=== PATIENT | male | born 1980 | race American Indian/Alaskan Native ===

== ENCOUNTER 2020-09-09 08:34 | Emergency (ER) | payer OTHER ==
--- NOTE | 2020-09-09 08:57 | EDM.PDOC ---
ED HPI GENERAL MEDICAL PROBLEM - General Chief Complaint: Abdominal Pain Stated Complaint: AMBULANCE Time Seen by Provider: 09/09/20 08:45 Source of Information: Reports: Patient History Limitations: Reports: No Limitations - History of Present Illness INITIAL COMMENTS - FREE TEXT/NARRATIVE: This 40 yo male patient was brought to the ED by [facility] due to upper abdominal pain. The patient reports his abdominal pain started at about 0200 in the morning. The patient reports he took Tylenol with no symptom relief. The patient reports he had chicken fried rice last night and a couple of chocolates before his symptoms started. The patient reports no past history of abdominal pain or abdominal surgeries. The patient denied any recent alcohol or drug use. Onset: Today Onset Date: 09/09/20 Onset Time: 02:00 Duration: Constant Location: Reports: Abdomen (Upper abdomen) Quality: Reports: Ache, Sharp, Stabbing Severity: Moderate Improves with: Reports: None Worsens with: Reports: None Context: Reports: Other Associated Symptoms: Reports: No Other Symptoms Treatments FAMILY SERVICES ASSISTANT: Reports: Acetaminophen Epigastric Pain Score (Numeric/FACES): 10 - Related Data Allergies Allergy/AdvReac Type Severity Reaction Status Date / Time penicillin Allergy Difficulty Verified 09/09/20 08:44 Breathing Home Meds: Home Meds . [No Known Home Meds] 01/27/15 [History] Past Medical History - Past Health History Medical/Surgical History: Denies Medical/Surgical History Other Musculoskeletal History: Hasd Marsa to left arm in past. Other Dermatologic History: MARSA to left arm. Social & Family History - Tobacco Use Tobacco Use Status *Q: Current Every Day Tobacco User Years of Tobacco use: 10 Packs/Tins Daily: 0.5 - Recreational Drug Use Recreational Drug Use: No ED ROS GENERAL - Review of Systems Review Of Systems: Comprehensive ROS is negative, except as noted in HPI. ED EXAM, GI/ABD - Physical Exam Exam: See Below Exam Limited By: No Limitations General Appearance: Alert, WD/WN, Moderate Distress Eyes: Bilateral: Normal Appearance, EOMI Ears: Normal External Exam, Normal Canal, Hearing Grossly Normal, Normal TMs Nose: Normal Inspection, Normal Mucosa, No Blood Throat/Mouth: Normal Inspection, Normal Lips, Normal Teeth, Normal Gums, Normal Oropharynx, Normal Voice, No Airway Compromise Head: Atraumatic, Normocephalic Neck: Normal Inspection, Supple, Non-Tender, Full Range of Motion Respiratory/Chest: No Respiratory Distress, Lungs Clear, Normal Breath Sounds, No Accessory Muscle Use, Chest Non-Tender Cardiovascular: Normal Peripheral Pulses, Regular Rate, Rhythm, No Edema, No Gallop, No JVD, No Murmur, No Rub GI/Abdominal Exam: Normal Bowel Sounds, Soft, No Organomegaly, No Distention, No Abnormal Bruit, No Mass, Pelvis Stable, Tender (epigastric region) (Male) Exam: Deferred Rectal (Males) Exam: Deferred Back Exam: Normal Inspection, Full Range of Motion, NT Extremities: Normal Inspection, Normal Range of Motion, Non-Tender, Normal Capillary Refill, No Pedal Edema Neurological: Alert, Oriented, CN II-XII Intact, Normal Cognition, Normal Gait, Normal Reflexes, No Motor/Sensory Deficits Psychiatric: Normal Affect, Normal Mood Skin Exam: Warm, Dry, Intact, Normal Color, No Rash Lymphatic: No Adenopathy Course - Vital Signs Last Recorded V/S: Last Vital Signs Temp 36.6 C 09/09/20 08:58 Pulse 78 09/09/20 08:58 Resp 18 09/09/20 08:58 BP 145/81 H 09/09/20 08:58 Pulse Ox 100 09/09/20 08:58 - Orders/Labs/Meds Orders: Active Orders 24 hr Category Date Time Status EKG Documentation Completion [RC] STAT Care 09/09/20 08:46 Ordered COVID-19/FLU A+B [MOLEC] Urgent Lab 09/09/20 10:43 Ordered CULTURE BLOOD [BC] Stat Lab 09/09/20 08:46 Ordered HYDROmorphone [Dilaudid] Med 09/09/20 10:55 Once 1 mg IVPUSH ONETIME ONE Sodium Chloride 0.9% [Normal Saline] 1,000 ml Med 09/09/20 09:31 Ordered IV .BOLUS Medication Orders Sodium Chloride (Normal Saline) 1,000 mls @ 500 mls/hr IV .BOLUS ONE Stop: 09/09/20 11:30 Last Admin: 09/09/20 09:39 Dose: 500 mls/hr Documented by: SARAH Labs: Laboratory Tests 09/09/20 09/09/20 09/09/20 Range/Units 09:00 09:00 10:38 WBC 11.7 H (5.0-10.0) 10^3/uL RBC 4.44 L (4.6-6.2) 10^6/uL Hgb 13.6 L (14.0-18.0) g/dL Hct 40.0 (40.0-54.0) % MCV 90.1 (80-100) fL MCH 30.6 (27.0-34.0) pg MCHC 34.0 (33.0-35.0) g/dL Plt Count 306 (150-450) 10^3/uL Neut % (Auto) 87.1 H (42.2-75.2) % Lymph % (Auto) 7.0 L (20.5-50.1) % Coffee % (Auto) 4.8 (2-8) % Eos % (Auto) 1.0 (1.0-3.0) % Baso % (Auto) 0.1 (0.0-1.0) % Sodium 136 (136-145) mmol/L Potassium 3.6 (3.5-5.1) mmol/L Chloride 100 (98-107) mmol/L Carbon Dioxide 28 (21-32) mmol/L Anion Gap 11.6 (7-13) mEq/L BUN 14 (7-18) mg/dL Creatinine 0.82 (0.70-1.30) mg/dL Est Cr Clr Drug Dosing 118.17 mL/min Estimated GFR (MDRD) > 60 BUN/Creatinine Ratio 17.1 (No establ ref range) Glucose 111 H (74-99) mg/dL Calcium 8.1 L (8.5-10.1) mg/dL Total Bilirubin 0.5 (0.2-1.0) mg/dL AST 27 (15-37) U/L ALT 45 (16-63) U/L Alkaline Phosphatase 93 (46-116) U/L Troponin I < 0.017 (0.000-0.056) ng/mL Total Protein 6.7 (6.4-8.2) g/dL Albumin 3.6 (3.4-5.0) g/dL Globulin 3.1 Albumin/Globulin Ratio 1.2 Amylase 22 L (25-115) U/L Lipase 42 L (73-393) U/L Urine Color Yellow (YELLOW) Urine Appearance Slightly cloudy (CLEAR) Urine pH 7.5 (5.0-9.0) Ur Specific [place] 1.025 (1.005-1.030) Urine Protein Negative (NEGATIVE) Urine Glucose (UA) Negative (NEGATIVE) Urine Ketones Trace H (NEGATIVE) Urine Occult Blood Negative (NEGATIVE) Urine Nitrite Negative (NEGATIVE) Urine Bilirubin Negative (NEGATIVE) Urine Urobilinogen 1.0 (0.2-1.0) mg/dL Ur Leukocyte Esterase Negative (NEGATIVE) Urine Opiates Screen (NEGATIVE) Ur Oxycodone Screen (NEGATIVE) Urine Methadone Screen (NEGATIVE) Acetaminophen 14 (10-30 (Therapeutic)) ug/mL Ur Barbiturates Screen (NEGATIVE) U Tricyclic Antidepress (NEGATIVE) Ur Phencyclidine Scrn (NEGATIVE) Ur Amphetamine Screen (NEGATIVE) U Methamphetamines Scrn (NEGATIVE) Urine MDMA Screen (NEGATIVE) U Benzodiazepines Scrn (NEGATIVE) Urine Cocaine Screen (NEGATIVE) U Marijuana (THC) Screen (NEGATIVE) Ethyl Alcohol < 3 (0) mg/dL 09/09/20 Range/Units 10:38 WBC (5.0-10.0) 10^3/uL RBC (4.6-6.2) 10^6/uL Hgb (14.0-18.0) g/dL Hct (40.0-54.0) % MCV (80-100) fL MCH (27.0-34.0) pg MCHC (33.0-35.0) g/dL Plt Count (150-450) 10^3/uL Neut % (Auto) (42.2-75.2) % Lymph % (Auto) (20.5-50.1) % Coffee % (Auto) (2-8) % Eos % (Auto) (1.0-3.0) % Baso % (Auto) (0.0-1.0) % Sodium (136-145) mmol/L Potassium (3.5-5.1) mmol/L Chloride (98-107) mmol/L Carbon Dioxide (21-32) mmol/L Anion Gap (7-13) mEq/L BUN (7-18) mg/dL Creatinine (0.70-1.30) mg/dL Est Cr Clr Drug Dosing mL/min Estimated GFR (MDRD) BUN/Creatinine Ratio (No establ ref range) Glucose (74-99) mg/dL Calcium (8.5-10.1) mg/dL Total Bilirubin (0.2-1.0) mg/dL AST (15-37) U/L ALT (16-63) U/L Alkaline Phosphatase (46-116) U/L Troponin I (0.000-0.056) ng/mL Total Protein (6.4-8.2) g/dL Albumin (3.4-5.0) g/dL Globulin Albumin/Globulin Ratio Amylase (25-115) U/L Lipase (73-393) U/L Urine Color (YELLOW) Urine Appearance (CLEAR) Urine pH (5.0-9.0) Ur Specific [place] (1.005-1.030) Urine Protein (NEGATIVE) Urine Glucose (UA) (NEGATIVE) Urine Ketones (NEGATIVE) Urine Occult Blood (NEGATIVE) Urine Nitrite (NEGATIVE) Urine Bilirubin (NEGATIVE) Urine Urobilinogen (0.2-1.0) mg/dL Ur Leukocyte Esterase (NEGATIVE) Urine Opiates Screen Negative (NEGATIVE) Ur Oxycodone Screen Negative (NEGATIVE) Urine Methadone Screen Negative (NEGATIVE) Acetaminophen (10-30 (Therapeutic)) ug/mL Ur Barbiturates Screen Negative (NEGATIVE) U Tricyclic Antidepress Negative (NEGATIVE) Ur Phencyclidine Scrn Negative (NEGATIVE) Ur Amphetamine Screen Negative (NEGATIVE) U Methamphetamines Scrn Positive H (NEGATIVE) Urine MDMA Screen Negative (NEGATIVE) U Benzodiazepines Scrn Negative (NEGATIVE) Urine Cocaine Screen Negative (NEGATIVE) U Marijuana (THC) Screen Negative (NEGATIVE) Ethyl Alcohol (0) mg/dL Meds: Medications Generic Name Dose Route Start Last Admin Trade Name Freq PRN Reason Stop Dose Admin Sodium Chloride 1,000 mls @ 500 mls/hr 09/09/20 09:31 09/09/20 09:39 Normal Saline IV 09/09/20 11:30 500 mls/hr .BOLUS ONE Administration Discontinued Medications Generic Name Dose Route Start Last Admin Trade Name Freq PRN Reason Stop Dose Admin Hydromorphone HCl 0.5 mg 09/09/20 09:32 09/09/20 09:39 Dilaudid IVPUSH 09/09/20 09:33 0.5 mg ONETIME ONE Administration Iopamidol 100 ml 09/09/20 09:30 09/09/20 10:13 Isovue-300 (61%) IVPUSH 09/09/20 09:31 75 ml ONETIME ONE Administration Departure - Departure Time of Disposition: 10:55 Disposition: DC/Tfer to Acute Hospital 02 Condition: Poor Clinical Impression: Acute cholecystitis - Discharge Information *PRESCRIPTION DRUG MONITORING PROGRAM REVIEWED*: Not Applicable *COPY OF PRESCRIPTION DRUG MONITORING REPORT IN PATIENT MONO: Not Applicable Forms: Interfacility Transfer EMTALA Care Plan Goals: Discussed the patient's examination, lab, EKG and CT results with Dr. Guzman (Hospitalist with [facility] in [place]). Dr. Guzman accepted the patient for continued evaluation and further management. The patient will be transported by [facility]. Sepsis Event Note (ED) - Focused Exam Vital Signs: Vital Signs Temp Pulse Resp BP Pulse Ox 09/09/20 08:58 36.6 C 78 18 145/81 H 100 - My Orders Last 24 Hours: My Active Orders 09/09/20 08:46 EKG Documentation Completion [RC] STAT CULTURE BLOOD [BC] Stat 09/09/20 09:31 Sodium Chloride 0.9% [Normal Saline] 1,000 ml IV .BOLUS 09/09/20 10:43 COVID-19/FLU A+B [MOLEC] Urgent 09/09/20 10:55 HYDROmorphone [Dilaudid] 1 mg IVPUSH ONETIME ONE - Assessment/Plan Last 24 Hours: My Active Orders 09/09/20 08:46 EKG Documentation Completion [RC] STAT CULTURE BLOOD [BC] Stat 09/09/20 09:31 Sodium Chloride 0.9% [Normal Saline] 1,000 ml IV .BOLUS 09/09/20 10:43 COVID-19/FLU A+B [MOLEC] Urgent 09/09/20 10:55 HYDROmorphone [Dilaudid] 1 mg IVPUSH ONETIME ONE
[2020-09-09 08:59] VITALS: BP 145/81; PULSE 78
[2020-09-09 09:28] LABS: ACETAMINOPHEN 14 ug/mL (10-30 (Therapeutic)); ANION GAP 11.6 mEq/L (7-13); CHLORIDE,CL 100 mmol/L (98-107); SODIUM,NA 136 mmol/L (136-145)
[2020-09-09] MEDS ORDERED: Iopamidol 612 MG/ML 100 ML Bottle IVPUSH ONE (09:30)
[2020-09-09] MEDS ORDERED: Sodium Chloride 0.9% 1,000 ML IV ONE (09:31)
[2020-09-09] MEDS ORDERED: HYDROmorphone 0.5 MG/0.5 ML Syringe IVPUSH ONE (09:32)
--- NOTE | 2020-09-09 10:33 | CT ---
PROCEDURE INFORMATION: Exam: CT Abdomen And Pelvis With Contrast Exam date and time: 09/09/2020 10:00 AM Age: 40 years old Clinical indication: Abdominal pain; Additional info: Upper abdominal pain (wbc - 11.7) TECHNIQUE: Imaging protocol: Computed tomography of the abdomen and pelvis with contrast. Radiation optimization: All CT scans at this facility use at least one of these dose optimization techniques: automated exposure control; mA and/or kV adjustment per patient size (includes targeted exams where dose is matched to clinical indication); or iterative reconstruction. Contrast material: ISOVUE 300; Contrast volume: 75 ml; Contrast route: INTRAVENOUS (IV); COMPARISON: No relevant prior studies available. FINDINGS: Liver: Normal. No mass. Gallbladder and bile ducts: Markedly dilated gallbladder diffuse pericholecystic edema. Findings are highly suspicious for acute cholecystitis. No bile duct dilatation is identified. Pancreas: Normal. No ductal dilation. Spleen: Normal. No splenomegaly. Adrenal glands: Normal. No mass. Kidneys and ureters: Normal. No hydronephrosis. Stomach and bowel: Unremarkable. No obstruction. No mucosal thickening. Appendix: No evidence of appendicitis. Intraperitoneal space: Small amount of free fluid in the pelvis. Vasculature: Unremarkable. No abdominal aortic aneurysm. Lymph nodes: Unremarkable. No enlarged lymph nodes. Urinary bladder: Unremarkable as visualized. Reproductive: Unremarkable as visualized. Bones/joints: Unremarkable. No acute fracture. Soft tissues: Unremarkable. IMPRESSION: 1. Findings consistent with acute cholecystitis. No bile duct dilatation identified. Consider ultrasound to evaluate
[2020-09-09 10:52] LABS: AMPHETAMINES,URINE NEGATIVE (NEGATIVE); BARBITURATES,URINE NEGATIVE (NEGATIVE); BENZODIAZEPINE,URINE NEGATIVE (NEGATIVE); MDMA (ECSTASY), URINE NEGATIVE (NEGATIVE); METHADONE,URINE NEGATIVE (NEGATIVE); METHAMPHETAMINES,URINE POSITIVE (NEGATIVE); OPIATES,URINE NEGATIVE (NEGATIVE); OXYCODONE,URINE NEGATIVE (NEGATIVE); PHENCYCLIDINE,URINE NEGATIVE (NEGATIVE); TCA,URINE NEGATIVE (NEGATIVE)
[2020-09-09] MEDS ORDERED: HYDROmorphone 1 MG/ML Syringe IVPUSH ONE (10:55)
[2020-09-09 11:51] LABS: CORONAVIRUS COVID-19 NAA NEGATIVE (NEGATIVE)
== END 2020-09-09 11:23 ==
LOC: DL.ED 08:34
DX: K81.0 Acute cholecystitis (principal); Z72.0 Tobacco use; Z88.0 Allergy status to penicillin; Z20.822 Contact with and (suspected) exposure to COVID-19
CPT/HCPCS: 0240U; 36415; 74177; 80053; 80143; 80305; 80307; 81003; 82150; 83690; 84484; 85025; 87040; 93005; 96374; 96376; 99285; J1170; J7030; Q9967; 99284

== ENCOUNTER 2022-02-04 02:00 | Emergency (ER) | payer MEDICAID, OTHER ==
[2022-02-04 01:48] LABS: ACETAMINOPHEN 3 ug/mL (10-30 (Therapeutic)); ANION GAP 24.4 mEq/L (7-13); CHLORIDE,CL 93 mmol/L (98-107); SODIUM,NA 126 mmol/L (136-145)
[~2022-02-04 02:00] MED LIST: Furosemide 40 MG/4 ML VIAL IVPUSH ONE; cefTRIAXone 1 GM in Sodium Chloride 0.9% 50 ML IV ONE
[2022-02-04 02:07] LABS: ESTIMATED GFR 20 mL/min (>=60)
[2022-02-04] MEDS ORDERED: HYDROmorphone 0.5 MG/0.5 ML Syringe IVPUSH ONE (03:11)
[2022-02-04 03:20] LABS: CORONAVIRUS COVID-19 NAA NEGATIVE (NEGATIVE)
[2022-02-04 04:14] VITALS: BP 99/50; PULSE 108
[2022-02-04 04:29] LABS: AMPHETAMINES,URINE NEGATIVE (NEGATIVE); BARBITURATES,URINE NEGATIVE (NEGATIVE); BENZODIAZEPINE,URINE NEGATIVE (NEGATIVE); MDMA (ECSTASY), URINE NEGATIVE (NEGATIVE); METHADONE,URINE NEGATIVE (NEGATIVE); METHAMPHETAMINES,URINE NEGATIVE (NEGATIVE); OPIATES,URINE NEGATIVE (NEGATIVE); OXYCODONE,URINE NEGATIVE (NEGATIVE); PHENCYCLIDINE,URINE NEGATIVE (NEGATIVE); TCA,URINE NEGATIVE (NEGATIVE)
[2022-02-04] MEDS ORDERED: Clindamycin in 0.9 % Sod Chlor 300 MG in Premix Bag 1 BAG IV ONE ×2 (05:48)
== END 2022-02-04 06:18 ==
LOC: DL.ED 02:00
DX: R06.02 Shortness of breath (principal); N17.9 Acute kidney failure, unspecified; D72.825 Bandemia; E72.20 Disorder of urea cycle metabolism, unspecified; Z88.0 Allergy status to penicillin; Z20.822 Contact with and (suspected) exposure to COVID-19
CPT/HCPCS: 0240U; 36415; 71045; 74176; 80053; 80143; 80179; 80305; 80307; 81001; 82140; 83605; 83735; 83880; 84484; 85025; 85379; 87040; 87077; 87086; 87088; 87186; 93005; 96365; 96375; 99285; J0696; J1170; J1940

== ENCOUNTER 2022-04-11 14:14 | Inpatient (IN) | payer MEDICAID ==
[2022-04-11] MEDS ORDERED: Scopolamine 1.5 MG Transdermal Patch TOP ONE (14:21)
[2022-04-11] MEDS ORDERED: LORazepam 2 MG/ML SDV IVPUSH PRN (14:21)
[2022-04-11] MEDS ORDERED: Atropine 1% Ophth Soln 5 ML BOTTLE SL PRN (14:22)
[2022-04-11] MEDS ORDERED: Morphine 4 MG/ML Syringe IVPUSH PRN (14:23)
[2022-04-11] MEDS ORDERED: Ondansetron 4 MG/2 ML SDV IVPUSH PRN (14:24)
[2022-04-11] MEDS ORDERED: fentaNYL 50 MCG/HR Transdermal Patch TRDERM SCH (14:30)
[2022-04-11] MEDS ORDERED: oxyCODONE ER 20 MG TAB.ER PO ONE (14:44)
[2022-04-11] MEDS ORDERED: Zolpidem 5 MG Tab PO PRN (15:11)
[2022-04-11] MEDS: Sodium Chloride 0.9% 10 ML Syringe FLUSH PRN ×2 (15:21→16:58)
[2022-04-11] MEDS: HYDROmorphone 1 MG/ML Syringe IVPUSH PRN ×3 (16:58→23:09)
[2022-04-11] MEDS: Sodium Chloride 0.9% 10 ML Syringe FLUSH SCH (20:33)
[2022-04-11] MEDS: oxyCODONE ER 20 MG TAB.ER PO SCH (20:34)
[2022-04-11] MEDS ORDERED: Check Patch TRDERM SCH (21:00)
[2022-04-11] MEDS ORDERED: oxyCODONE ER 20 MG TAB.ER PO SCH (21:00)
[2022-04-12] MEDS: HYDROmorphone 1 MG/ML Syringe IVPUSH PRN ×9 (02:35→23:49)
[2022-04-12] MEDS: guaiFENesin 100 MG/5 ML Soln 5 ML UD Cup PO PRN ×2 (02:45→09:41)
[2022-04-12] MEDS: oxyCODONE ER 20 MG TAB.ER PO SCH ×2 (08:20→21:46)
[2022-04-12] MEDS: Sodium Chloride 0.9% 10 ML Syringe FLUSH SCH ×2 (08:22→20:41)
[2022-04-12] MEDS: Sodium Chloride 0.9% 10 ML Syringe FLUSH PRN ×3 (14:32→17:11)
[2022-04-13] MEDS: HYDROmorphone 1 MG/ML Syringe IVPUSH PRN ×9 (02:33→23:29)
[2022-04-13] MEDS: guaiFENesin 100 MG/5 ML Soln 5 ML UD Cup PO PRN (02:38)
[2022-04-13] MEDS: oxyCODONE ER 20 MG TAB.ER PO SCH ×2 (08:29→21:59)
[2022-04-13] MEDS: Sodium Chloride 0.9% 10 ML Syringe FLUSH SCH ×2 (09:37→21:05)
[2022-04-13] MEDS: Sodium Chloride 0.9% 10 ML Syringe FLUSH PRN ×3 (12:23→18:22)
[2022-04-14] MEDS ORDERED: HYDROmorphone 1 MG/ML Syringe ONE (02:20)
[2022-04-14] MEDS: HYDROmorphone 1 MG/ML Syringe IVPUSH PRN ×8 (02:27→21:33)
[2022-04-14] MEDS: Sodium Chloride 0.9% 10 ML Syringe FLUSH PRN ×4 (07:50→18:36)
[2022-04-14] MEDS: guaiFENesin 100 MG/5 ML Soln 5 ML UD Cup PO PRN (09:50)
[2022-04-14] MEDS: oxyCODONE ER 20 MG TAB.ER PO SCH ×2 (10:10→20:16)
[2022-04-14] MEDS: Sodium Chloride 0.9% 10 ML Syringe FLUSH SCH ×2 (10:11→20:17)
[2022-04-14] MEDS: diphenhydrAMINE 50 MG/ML SDV IVPUSH PRN (20:17)
[2022-04-15] MEDS: HYDROmorphone 1 MG/ML Syringe IVPUSH PRN ×9 (00:19→22:48)
[2022-04-15] MEDS: diphenhydrAMINE 50 MG/ML SDV IVPUSH PRN ×3 (01:50→21:41)
[2022-04-15] MEDS: oxyCODONE ER 20 MG TAB.ER PO SCH ×2 (08:59→21:00)
[2022-04-15] MEDS: guaiFENesin 100 MG/5 ML Soln 5 ML UD Cup PO PRN ×2 (09:00→23:02)
[2022-04-15] MEDS: Sodium Chloride 0.9% 10 ML Syringe FLUSH SCH ×2 (09:04→21:40)
[2022-04-16] MEDS: HYDROmorphone 1 MG/ML Syringe IVPUSH PRN ×4 (00:53→09:24)
[2022-04-16] MEDS: diphenhydrAMINE 50 MG/ML SDV IVPUSH PRN ×3 (03:52→19:06)
[2022-04-16] MEDS: oxyCODONE ER 20 MG TAB.ER PO SCH ×3 (09:23→22:55)
[2022-04-16] MEDS: Sodium Chloride 0.9% 10 ML Syringe FLUSH SCH ×2 (09:27→22:52)
[2022-04-16] MEDS ORDERED: HYDROmorphone 1 MG/ML Syringe IVPUSH PRN (09:58)
[2022-04-16] MEDS: HYDROmorphone 2 MG Tab PO PRN ×2 (15:06→20:43)
[2022-04-17] MEDS: diphenhydrAMINE 50 MG/ML SDV IVPUSH PRN ×4 (01:07→20:29)
[2022-04-17] MEDS: HYDROmorphone 2 MG Tab PO PRN (02:15)
[2022-04-17] MEDS: oxyCODONE ER 20 MG TAB.ER PO SCH ×3 (06:25→22:07)
[2022-04-17] MEDS: Sodium Chloride 0.9% 10 ML Syringe FLUSH SCH ×2 (10:16→20:29)
[2022-04-17] MEDS: HYDROmorphone 1 MG/ML Syringe IVPUSH PRN ×2 (16:42→22:01)
[2022-04-18] MEDS: diphenhydrAMINE 50 MG/ML SDV IVPUSH PRN ×4 (01:33→18:24)
[2022-04-18] MEDS: HYDROmorphone 1 MG/ML Syringe IVPUSH PRN ×5 (02:56→20:18)
[2022-04-18] MEDS: oxyCODONE ER 20 MG TAB.ER PO SCH ×3 (05:20→21:25)
[2022-04-18] MEDS: Sodium Chloride 0.9% 10 ML Syringe FLUSH SCH ×2 (09:51→20:17)
[2022-04-18] MEDS: Sodium Chloride 0.9% 10 ML Syringe FLUSH PRN ×4 (11:56→18:24)
[2022-04-19] MEDS: Sodium Chloride 0.9% 10 ML Syringe FLUSH PRN ×2 (00:17→16:36)
[2022-04-19] MEDS: HYDROmorphone 1 MG/ML Syringe IVPUSH PRN ×4 (00:18→12:29)
[2022-04-19] MEDS: oxyCODONE ER 20 MG TAB.ER PO SCH ×3 (05:22→21:47)
[2022-04-19] MEDS: diphenhydrAMINE 25 MG Tab PO PRN ×2 (06:14→12:28)
[2022-04-19] MEDS: Sodium Chloride 0.9% 10 ML Syringe FLUSH SCH ×2 (08:31→20:34)
[2022-04-19] MEDS ORDERED: Acetaminophen 325 MG Tab PO PRN (15:14)
[2022-04-19] MEDS: HYDROmorphone 2 MG/ML Syringe IVPUSH PRN ×2 (16:37→20:35)
[2022-04-20] MEDS: HYDROmorphone 2 MG/ML Syringe IVPUSH PRN ×7 (00:47→23:57)
[2022-04-20] MEDS: diphenhydrAMINE 25 MG Tab PO PRN (02:07)
[2022-04-20] MEDS: oxyCODONE ER 20 MG TAB.ER PO SCH ×3 (05:17→21:28)
[2022-04-20] MEDS: Sodium Chloride 0.9% 10 ML Syringe FLUSH SCH ×2 (08:52→20:34)
[2022-04-21] MEDS: diphenhydrAMINE 25 MG Tab PO PRN ×2 (01:46→13:06)
[2022-04-21] MEDS: HYDROmorphone 2 MG/ML Syringe IVPUSH PRN ×5 (04:19→20:10)
[2022-04-21] MEDS: oxyCODONE ER 20 MG TAB.ER PO SCH ×3 (05:49→22:00)
[2022-04-21] MEDS: Sodium Chloride 0.9% 10 ML Syringe FLUSH SCH ×2 (08:14→22:01)
[2022-04-21] MEDS ORDERED: Sodium Chloride 0.65% Nasal Spray 45 ML Bottle NAS PRN (09:54)
[2022-04-21 19:46] VITALS: BP 132/80; PULSE 115
[2022-04-22] MEDS: HYDROmorphone 2 MG/ML Syringe IVPUSH PRN (00:28)
[2022-04-29] MEDS ORDERED: oxyCODONE 5 MG Tab ONE (17:24)
[2022-04-30] MEDS ORDERED: oxyCODONE 5 MG Tab ONE ×5 (00:24→20:04)
[2022-05-01] MEDS ORDERED: oxyCODONE 5 MG Tab ONE ×3 (03:54→20:10)
[2022-05-01] MEDS ORDERED: Polyethylene Glycol 3350 Powder 17 GM Packet ONE (14:21)
[2022-05-02] MEDS ORDERED: oxyCODONE 5 MG Tab ONE ×2 (03:01→12:15)
[2022-05-02] MEDS ORDERED: Polyethylene Glycol 3350 Powder 17 GM Packet ONE (11:08)
== END 2022-04-26 16:30 | disposition home health service (06) | DRG 951 ==
LOC: DL.MS 14:14 → UNDOADMIN 14:14 → DL.ZCENSUS 04-22 13:31
PROVIDERS: ADMIT Internal Medicine; ATTEND Internal Medicine
DX: Z51.5 Encounter for palliative care (principal); A41.01 Sepsis due to Methicillin susceptible Staphylococcus aureus; I50.33 Acute on chronic diastolic (congestive) heart failure; J96.21 Acute and chronic respiratory failure with hypoxia; N17.0 Acute kidney failure with tubular necrosis; K65.9 Peritonitis, unspecified; I33.0 Acute and subacute infective endocarditis; E87.20 Acidosis, unspecified; F11.20 Opioid dependence, uncomplicated; D69.3 Immune thrombocytopenic purpura; Z66 Do not resuscitate; K74.60 Unspecified cirrhosis of liver; G25.81 Restless legs syndrome; G89.4 Chronic pain syndrome; M46.40 Discitis, unspecified, site unspecified; N18.9 Chronic kidney disease, unspecified; D63.8 Anemia in other chronic diseases classified elsewhere; Z88.0 Allergy status to penicillin; Z79.899 Other long term (current) drug therapy
CPT/HCPCS: 36415; 80053; 83735; 85025; A9270-GY; J1170; J1200; J2270; J3490

== ENCOUNTER 2022-05-29 00:13 | Inpatient (IN) | payer MEDICAID ==
[2022-05-29] MEDS ORDERED: Naloxone 2 MG/2 ML Syringe IVPUSH ONE (00:15)
[2022-05-29] MEDS ORDERED: Norepinephrine 4 MG/4 ML SDV ONE (00:27)
[2022-05-29] MEDS ORDERED: Phenylephrine 1% 10 MG/ML SDV ONE (00:29)
[2022-05-29] MEDS ORDERED: Etomidate 2 MG/ML 20 ML SDV IVPUSH ONE ×2 (00:30→02:19)
[2022-05-29] MEDS ORDERED: Phenylephrine 1% 10 MG/ML SDV IV ONE (00:30)
[2022-05-29] MEDS ORDERED: Rocuronium 100 MG/10 ML MDV IV ONE (00:30)
[2022-05-29] MEDS ORDERED: Sodium Chloride 0.9% 10 ML Syringe IV ONE (00:30)
[2022-05-29] MEDS ORDERED: Lactated Ringers 1,000 ML IV ONE (00:30)
[2022-05-29] MEDS ORDERED: Sodium Chloride 0.9% 1,000 ML IV ONE (00:46)
[2022-05-29 01:07] LABS: O2 DELIVERY DEVICE VENTILATOR
[2022-05-29 01:08] LABS: PCO2 ARTERIAL 34 mmHg (35-45); PO2 ARTERIAL 327 mmHg (70-100)
[2022-05-29 01:09] LABS: ALLEN TEST PERFORMED; BASE EXCESS ARTERIAL -29 mmol/L ((-2)-(+3)); BICARBONATE,ARTERIAL 5.2 mmol/L (22-26); O2 SATURATION ARTERIAL 100 % (95-100)
[2022-05-29] MEDS ORDERED: Sodium Bicarbonate 8.4% 50 MEQ/50 ML Syringe IVPUSH ONE (01:20)
[2022-05-29 01:30] LABS: ANION GAP 36.2 mEq/L (7-13); CHLORIDE,CL 100 mmol/L (98-107); SODIUM,NA 136 mmol/L (136-145)
[2022-05-29 01:33] LABS: ESTIMATED GFR 4 mL/min (>=60)
[2022-05-29 01:39] LABS: CORONAVIRUS COVID-19 NAA NEGATIVE (NEGATIVE)
[2022-05-29] MEDS ORDERED: Calcium Gluconate 10% 1 GM/10 ML SDV IVPUSH ONE (01:44)
[2022-05-29] MEDS: Lactulose Soln 10 GM/15 ML 30 ML UD Cup OGTUBE ONE ×2 (02:04→02:25)
[2022-05-29] MEDS ORDERED: Dextrose 10% in Water 500 ML IV ONE (02:05)
[2022-05-29] MEDS ORDERED: 50% Dextrose in Water 50 ML Syringe IVPUSH PRN (02:05)
[2022-05-29] MEDS ORDERED: Glucagon,Human Recombinant 1 MG Vial IM PRN (02:05)
[2022-05-29] MEDS ORDERED: Octreotide 100 MCG in Sodium Chloride 0.9% 100 ML IV ONE (02:08)
[2022-05-29] MEDS ORDERED: Pantoprazole 80 MG in Sodium Chloride 0.9% 100 ML IV SCH (02:15)
[2022-05-29] MEDS ORDERED: propofoL 100 ML IV ONE (02:19)
[2022-05-29] MEDS ORDERED: Midazolam 1 MG/ML 2 ML SDV ONE ×5 (02:20→05:57)
[2022-05-29] MEDS ORDERED: Midazolam 1 MG/ML 2 ML SDV IVPUSH ONE ×6 (02:21→07:28)
[2022-05-29] MEDS ORDERED: Morphine 10 MG/ML Syringe IVPUSH PRN (04:32)
[2022-05-29] MEDS ORDERED: Morphine 2 MG/ML SYRINGE ONE ×6 (04:40→09:21)
[2022-05-29] MEDS ORDERED: Morphine 4 MG/ML Syringe ONE ×6 (04:41→09:21)
[2022-05-29] MEDS: Morphine 10 MG/ML Syringe IVPUSH PRN ×2 (07:33→09:00)
[2022-05-29] MEDS ORDERED: Midazolam 50 MG in Sodium Chloride 0.9% 40 ML IV SCH (07:45)
[2022-05-29] MEDS ORDERED: Midazolam 5 MG/ML 10 ML MDV ONE (07:55)
[2022-05-29] MEDS ORDERED: Morphine 4 MG/ML Syringe IVPUSH PRN (08:09)
[2022-05-29] MEDS ORDERED: Morphine 10 MG/ML Syringe IVPUSH ONE (08:15)
[2022-05-29] MEDS ORDERED: Naloxone 2 MG/2 ML Syringe IVPUSH PRN (08:45)
[2022-05-29] MEDS ORDERED: diphenhydrAMINE 25 MG Tab PO PRN (08:45)
[2022-05-29] MEDS ORDERED: Ondansetron 4 MG/2 ML SDV IVPUSH PRN (08:45)
[2022-05-29] MEDS ORDERED: diphenhydrAMINE 50 MG/ML SDV IVPUSH PRN (08:45)
[2022-05-29] MEDS ORDERED: Morphine PF 30 MG/30 ML PCA Vial IV ONE (08:48)
[2022-05-29 13:39] LABS: AMPHETAMINES,URINE NEGATIVE (NEGATIVE); BARBITURATES,URINE NEGATIVE (NEGATIVE); BENZODIAZEPINE,URINE NEGATIVE (NEGATIVE); MDMA (ECSTASY), URINE NEGATIVE (NEGATIVE); METHADONE,URINE NEGATIVE (NEGATIVE); METHAMPHETAMINES,URINE NEGATIVE (NEGATIVE); OPIATES,URINE POSITIVE (NEGATIVE); OXYCODONE,URINE POSITIVE (NEGATIVE); PHENCYCLIDINE,URINE NEGATIVE (NEGATIVE); TCA,URINE NEGATIVE (NEGATIVE)
== END 2022-05-29 09:30 | disposition expired | DRG 951 ==
LOC: DL.ED 00:13 → DL.MS 08:52
PROVIDERS: ADMIT Internal Medicine; ATTEND Internal Medicine
PROC: 0BH18EZ Insertion of Endotracheal Airway into Trachea, Via Natural or Artificial Opening Endoscopic (ICD-10-PCS; principal; 2022-05-29)
PROC: 5A1935Z Respiratory Ventilation, Less than 24 Consecutive Hours (ICD-10-PCS; 2022-05-29)
DX: Z51.5 Encounter for palliative care (principal); I33.0 Acute and subacute infective endocarditis; I85.11 Secondary esophageal varices with bleeding; N18.6 End stage renal disease; D69.3 Immune thrombocytopenic purpura; I50.9 Heart failure, unspecified; K74.60 Unspecified cirrhosis of liver; Z66 Do not resuscitate; Z20.822 Contact with and (suspected) exposure to COVID-19; R56.9 Unspecified convulsions; K72.10 Chronic hepatic failure without coma; R06.03 Acute respiratory distress; Z88.0 Allergy status to penicillin; Z88.5 Allergy status to narcotic agent; Z88.8 Allergy status to other drugs, medicaments and biological substances; Z86.711 Personal history of pulmonary embolism; Z79.01 Long term (current) use of anticoagulants; Z86.14 Personal history of Methicillin resistant Staphylococcus aureus infection; Z99.2 Dependence on renal dialysis; Z87.440 Personal history of urinary (tract) infections; Z90.49 Acquired absence of other specified parts of digestive tract
CPT/HCPCS: 0240U; 31500; 36415; 36600; 71045; 80053; 80305-QW; 80307; 81001; 81003; 82140; 82272; 82803; 82947; 83735; 83880; 84443; 84484; 85014; 85018; 85025; 85610; 86850; 86900; 86901; 86920; 86922; 87040; 87077; 87086; 87088; 87186; 96361; 96374; 96375; 99285-25; A9270-GY; J0610; J2250; J2270; J2310; J2370; J3490; J7030; J7120